=== PATIENT | male | born 1955 | race African-American/Black ===

== ENCOUNTER 2016-12-21 03:27 | Emergency (ER) | payer OTHER ==
[2016-12-21] MEDS ORDERED: DIPH/PERTUSS(ACELL)/TETANUS VAC/PF 0.5 ML SYR (>=10YO) IM ONE (03:45)
[2016-12-21] MEDS ORDERED: SILVER SULFADIAZINE 1% CREAM 25 GM TP ONE (03:45)
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
[2016-12-21] MEDS ORDERED: LIDOCAINE 2% JELLY 5 ML TUBE TOP ONE (04:02)
[2016-12-21] MEDS ORDERED: SILVER SULFADIAZINE 1% CREAM 400 GM TP ONE (04:24)
[2016-12-21 05:05] VITALS: BP 149/78
== END 2016-12-21 05:03 | disposition home or self-care (01) ==
LOC: ER 03:27
PROC: 0HBLXZZ Excision of Left Lower Leg Skin, External Approach (ICD-10-PCS; principal; 2016-12-21)
DX: T24.232A Burn of second degree of left lower leg, initial encounter (principal); X10.2XXA Contact with fats and cooking oils, initial encounter; Y92.015 Private garage of single-family (private) house as the place of occurrence of the external cause; Z91.013 Allergy to seafood
CPT/HCPCS: 99283; 90471; 90715; 16020; J3490